=== PATIENT | male | born 2000 | race Caucasian/White ===

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

== ENCOUNTER 2020-05-29 11:14 | Emergency (ER) | payer OTHER, SELFPAY ==
[~2020-05-29] VITALS: Ht 182.9 cm; Wt 68.0 kg
[2020-05-29 11:52] VITALS: BP_SYST 117
[2020-05-29] MEDS ORDERED: AMOX-426 PO (11:59)
[2020-05-29] MEDS ORDERED: ACET325T53 PO (12:00)
[2020-05-29] MEDS ORDERED: ALBMDI INH (12:00)
[2020-05-29 12:43] VITALS: BP_SYST 117
== END 2020-05-29 12:40 | disposition home or self-care (01) ==
LOC: SED 11:14
DX: J40 Bronchitis, not specified as acute or chronic (principal); Z20.822 Contact with and (suspected) exposure to COVID-19; Z79.899 Other long term (current) drug therapy
CPT/HCPCS: 99283